=== PATIENT | female | born 1985 | race Caucasian/White ===

== ENCOUNTER 2022-07-12 09:17 | Emergency (ER) | payer OTHER, SELFPAY ==
[2022-07-12 09:25] VITALS: BP 104/67; PULSE 84; RESP 16; TEMP 36.4; O2SAT 100
--- NOTE | 2022-07-12 09:34 | ED.ALLEREA ---
HPI - Allergic Reaction General Chief complaint: Allergic Reaction Stated complaint: poss reaction from antibiotic Time Seen by Provider: 07/12/22 10:07 Source: patient and RN notes reviewed Mode of arrival: ambulatory Limitations: no limitations History of Present Illness HPI narrative: 36-year-old female presents with concern for fever, body aches, chills, sore throat, runny nose. She reports she was concerned it could be a reaction to Augmentin. She started taking Augmentin for a right lower dental infection. She reports she has had 3 doses of it. She denies any rash, swollen lips, swollen tongue, trouble breathing, vomiting, diarrhea. She has taken penicillin based antibiotics before without problems. MD complaint: allergic reaction Related Data Home Medications Medication Instructions Recorded Confirmed bupropion HCl 200 mg tablet,12 hr 200 mg PO DAILY 07/12/22 07/12/22 sustained-release cyanocobalamin (vitamin B-12) 1,000 mcg subcut [id number] 07/12/22 07/12/22 1,000 mcg/mL injection solution ergocalciferol (vitamin D2) 1,250 1,250 mcg PO WEEKLY 07/12/22 07/12/22 mcg (50,000 unit) capsule sertraline 100 mg tablet 100 mg PO DAILY 07/12/22 07/12/22 Allergies Allergy/AdvReac Type Severity Reaction Status Date / Time sulfabenzamide Allergy Unknown Rash Verified 07/12/22 09:59 Review of Systems Review of Systems: CONSTITUTIONAL: Reports malaise, chills, sweats EYES: Denies redness, or discharge. ENT: Denies rhinorrhea, congestion, swollen lips, swollen tongue. Reports sore throat CARDIOVASCULAR: Denies chest pain, palpitations, or edema. RESPIRATORY: Denies cough or dyspnea. GASTROINTESTINAL: Denies abdominal pain, nausea, vomiting SKIN: Denies rash GI: Denies nausea, vomiting, diarrhea, abdominal pain MUSCULOSKELETAL: Denies joint pain. Reports myalgia. NEUROLOGIC: Denies headache. All systems reviewed & are unremarkable except as noted in HPI and below PMFSH Comments At time of signature, agree with nursing past medical, surgical, social and family history. There is no relevant family history pertinent to the presenting complaint Exam Narrative: GENERAL: Well-appearing, well-nourished, and in no acute distress. HEAD: Normocephalic, atraumatic. EYES: PERRLA, conjunctivae clear, and EOMI. ENT: Mucous membranes moist. Oropharynx without edema, erythema or lesions. Nares clear, turbinates edematous and erythematous, clear discharge. TM pearly delcid with sharp light reflex bilaterally; no tragal tenderness. Oropharynx erythematous without lesions. Tonsils not enlarged and without exudate, no drooling, no hoarseness, no trismus, uvula midline. Angioedema NECK: Supple. No lymphadenopathy CHEST: Clear to auscultation. Lung sounds equal. No respiratory distress. HEART: Regular rate and rhythm. SKIN: Warm, dry. Patches of erythema and edema NEURO: Alert and oriented x3. PSYCH: Normal mood and affect Course Course Emergency Course: Patient is aware of diagnosis, understands and agrees to treatment plan. Anticipatory guidance given. Patient agrees to follow-up as directed and is aware of reasons to seek care at the emergency department. Portions of this record may have been created with voice recognition software Level of Care: Express Care Visit Vital Signs Vital signs: Vital Signs Temperature 97.6 F 07/12/22 09:25 Pulse Rate 84 07/12/22 09:25 Respiratory Rate 16 07/12/22 09:25 Blood Pressure 104/67 07/12/22 09:25 Pulse Oximetry 100 07/12/22 09:25 Oxygen Delivery Room Air 07/12/22 09:25 Temperature 97.6 F 07/12/22 09:25 Pulse Rate 84 07/12/22 09:25 Respiratory Rate 16 07/12/22 09:25 Blood Pressure 104/67 07/12/22 09:25 Pulse Oximetry 100 07/12/22 09:25 Oxygen Delivery Room Air 07/12/22 09:25 Reviewed. MDM - Allergic Reaction MDM Narrative Medical decision making narrative: Differential diagnosis considered: [place] virus, strep
== END 2022-07-12 10:38 | disposition home or self-care (01) ==
PROVIDERS: Emergency Provider Nurse Practitioner; PCP Family Medicine
DX: B34.9 Viral infection, unspecified (principal); Z20.822 Contact with and (suspected) exposure to COVID-19; F41.9 Anxiety disorder, unspecified
CPT/HCPCS: 87426; 87804; 99213; C9803; G0463